=== PATIENT | female | born 1985 | race Caucasian/White ===

== ENCOUNTER 2016-12-30 19:32 | Emergency (ER) | payer MEDICAID, OTHER ==
[~2016-12-30] VITALS: Ht 149.9 cm; Wt 57.5 kg
[~2016-12-30 19:32] MED LIST: ACET325T21 PO; ALPR-475 PO; FLUO10CA13 PO; ONDA4TAB13 PO
[2016-12-30] MEDS ORDERED: MIRT15TA PO (20:30)
[2016-12-30] MEDS ORDERED: DEXT7.5T5 PO (20:30)
[2016-12-30] MEDS ORDERED: MULT-208 PO (20:30)
[2016-12-30 21:55] VITALS: BP 110/76
== END 2016-12-30 21:56 | disposition home or self-care (01) ==
LOC: ED 21:53
DX: S16.1XXA Strain of muscle, fascia and tendon at neck level, initial encounter (principal); S20.212A Contusion of left front wall of thorax, initial encounter; S20.211A Contusion of right front wall of thorax, initial encounter; S60.212A Contusion of left wrist, initial encounter; S70.02XA Contusion of left hip, initial encounter; V43.52XA Car driver injured in collision with other type car in traffic accident, initial encounter; Y93.89 Activity, other specified; Y92.410 Unspecified street and highway as the place of occurrence of the external cause; Y99.8 Other external cause status
CPT/HCPCS: 70450; 71020; 72125

== ENCOUNTER 2017-01-02 18:05 | Emergency (ER) | payer OTHER ==
[~2017-01-02] VITALS: Ht 149.9 cm; Wt 55.2 kg
[~2017-01-02 18:05] MED LIST changes: +DEXT7.5T5 PO; +MIRT15TA PO; +MULT-208 PO
[2017-01-02] MEDS ORDERED: SODIUM CHLORIDE FLUSH 10ML SYR IVF ONE (18:30)
[2017-01-02] MEDS ORDERED: DIPHENHYDRAMINE 50 MG/ML, 1ML IVPush ONE (18:30)
[2017-01-02] MEDS ORDERED: METOCLOPRAMIDE 5 MG/ML, 2ML IVPush ONE (18:30)
[2017-01-02] MEDS ORDERED: SODIUM CHLORIDE 0.9% 1,000ML IVBOLUS ONE (18:30)
[2017-01-02] MEDS ORDERED: HYDR-3307 PO (18:39)
[2017-01-02 18:53] LABS: BLOOD UREA NITROGEN 10 mg/dL (7-18)
[2017-01-02] MEDS ORDERED: DIPHENHYDRAMINE 50 MG/ML, 1ML ONE (18:57)
[2017-01-02] MEDS ORDERED: METOCLOPRAMIDE 5 MG/ML, 2ML ONE (18:57)
[2017-01-02 20:50] VITALS: BP 93/56
== END 2017-01-02 20:52 | disposition home or self-care (01) ==
LOC: ED 20:46
DX: R55 Syncope and collapse (principal); F07.81 Postconcussional syndrome; R11.2 Nausea with vomiting, unspecified; Z87.891 Personal history of nicotine dependence
CPT/HCPCS: 36415; 70450; 80048; 82040; 84703; 85025; 93005; 96361; 96374; 96375; 99285; J1200; J2765; J7030

== ENCOUNTER 2017-01-14 22:12 | Emergency (ER) | payer OTHER ==
[~2017-01-14] VITALS: Ht 149.9 cm; Wt 55.1 kg
[~2017-01-14 22:12] MED LIST changes: +HYDR-3307 PO
[2017-01-14 23:30] LABS: DAU SCREEN DISCLAIMER
[2017-01-14 23:38] LABS: ASPARTATE AMINO TRANSFERASE 25 U/L (15-37); BLOOD UREA NITROGEN 14 mg/dL (7-18)
[2017-01-14 23:42] LABS: ACETAMINOPHEN < 2 mcg/mL (10-30)
[2017-01-15] MEDS ORDERED: IBUPROFEN 200 MG TABLET ONE (01:59)
[2017-01-15] MEDS ORDERED: IBUPROFEN 200 MG TABLET PO ONE (02:00)
[2017-01-15 04:20] VITALS: BP 113/74
== END 2017-01-15 05:31 | disposition home or self-care (01) ==
LOC: ED 23:59
DX: F10.129 Alcohol abuse with intoxication, unspecified (principal); F32.1 Major depressive disorder, single episode, moderate
CPT/HCPCS: 36415; 80053; 80307; 80329; 85025; 99284; G0480